=== PATIENT | male | born 1975 | race Asian ===

== ENCOUNTER 2019-10-03 03:15 | Inpatient (IN) | payer MEDICAID, OTHER ==
[2019-10-03] VITALS (18 sets, daily range): BP systolic 94–149; BP diastolic 65–106
[~2019-10-03] VITALS: Ht 162.6 cm; Wt 65.5 kg
[2019-10-03] MEDS ORDERED: methylPREDNISolone SOD SUCC 125 MG/2 ML VL ONE (03:20)
[2019-10-03] MEDS ORDERED: methylPREDNISolone SOD SUCC 125 MG/2 ML VL IV ONE (03:30)
[2019-10-03] MEDS ORDERED: LORazepam 2MG/ML-1ML VIAL ONE ×2 (03:37→04:05)
[2019-10-03 03:39] LABS: Basophils # (auto) 0.1 uL; Basophils % (auto) 0.4 % (0.0-2.0); Eosinophils # (auto) 0 uL
[2019-10-03 03:40] LABS: Hematocrit 36.7 % (41.0-53.0); Hemoglobin 11.3 g/dL (13.5-17.5); Lymphocytes # (auto) 3.4 uL; Lymphocytes % (auto) 14.5 % (10.0-50.0); Mean Corpuscular Hemoglobin 18.3 pg (28.0-32.0); Mean Corpuscular Hgb Conc. 30.7 g/dL (32.0-36.0); Mean Corpuscular Volume 59.5 fL (80.0-100.0); Monocytes % (auto) 8.4 % (0.0-12.0); Neutrophils # (auto) 18.1 uL; Neutrophils % (auto) 76.7 % (37.0-80.0); Platelet Count (auto) 711 10^3/uL (140-450); Red Blood Cells 6.17 10^6/uL (4.5-5.90); Red Cell Distribution Width 15.8 % (11.8-14.3); White Blood Cell 23.5 10^3/uL (4.4-10.8)
[2019-10-03] MEDS ORDERED: LORazepam 2MG/ML-1ML VIAL IV ONE ×2 (03:45→04:00)
[2019-10-03 03:51] LABS: Albumin 2.8 g/dL (3.4-5.0); Anion Gap 10 (5-15); Aspartate Aminotransferase 27 U/L (15-37); BUN/Creatinine Ratio 15.1; Blood Urea Nitrogen 13 mg/dL (7-18); Carbon Dioxide 24 mmol/L (21-32); Chloride 108 mmol/L (98-107); GFR African American 125 mL/min; GFR Non-African American 104 mL/min; Glucose 151 mg/dL (74-106); Potassium 3.6 mmol/L (3.5-5.1); Sodium 142 mmol/L (136-145)
[2019-10-03 03:55] LABS: Alanine Aminotransferase 44 U/L (16-61); Alkaline Phosphatase 171 U/L (45-117); Bilirubin, Total 0.3 mg/dL (0.2-1.0); Total Protein 7.7 g/dL (6.4-8.2)
[2019-10-03] MEDS ORDERED: ONDANSETRON HCL 4 MG/2 ML VIAL ONE (03:57)
[2019-10-03] MEDS ORDERED: ONDANSETRON HCL 4 MG/2 ML VIAL IV ONE (04:00)
[2019-10-03] MEDS ORDERED: IPRATROPIUM BROM 0.5 MG/2.5ML INH SOL ONE (04:07)
[2019-10-03] MEDS ORDERED: ALBUTEROL SULF 2.5 MG/0.5ML(0.5%) NEB SOLN ONE (04:07)
[2019-10-03] MEDS ORDERED: IOHEXOL 300 MG/ML 100ML BOTTLE IJ ONE ×2 (04:34→16:33)
[2019-10-03 05:03] LABS: INR 1.05 (0.9-1.15); Partial Thromboplastin Time 30.7 sec (23.64-32.05)
[2019-10-03 06:09] LABS: Urine Bacteria FEW /hpf (None Seen); Urine Blood Negative /uL (Negative); Urine Mucus FEW (None Seen); Urine Specific Gravity 1.021 (1.001-1.035); Urine WBC 2 /hpf (0 - 3)
[2019-10-03] MEDS ORDERED: DOCUSATE SOD 100 MG CAP PO PRN (07:15)
[2019-10-03] MEDS ORDERED: NITROGLYCERIN 0.4 MG SL TAB SL PRN (07:15)
[2019-10-03] MEDS ORDERED: MORPHINE SULF INJ 2 MG/ML SYRINGE 1ML IV PRN (07:15)
[2019-10-03] MEDS ORDERED: ONDANSETRON HCL 4 MG/2 ML VIAL IV PRN (07:15)
[2019-10-03] MEDS ORDERED: ACETAMINOPHEN 325 MG TAB PO PRN (07:15)
[2019-10-03] MEDS ORDERED: MORPHINE SULFATE 4 MG/ML SYR/VIAL IV PRN (07:15)
[2019-10-03] MEDS ORDERED: HYDROcodone-ACET 5/325MG TAB PO PRN (07:15)
[2019-10-03] MEDS ORDERED: MIDAZOLAM DRIP 50 mg/50mL 50 ML IV ONE (07:21)
[2019-10-03] MEDS ORDERED: VANCOMYCIN 1GM/250ML 250 ML IV SCH ×2 (07:45→08:45)
[2019-10-03] MEDS ORDERED: ETOMIDATE (2MG/ML) 20ML VIAL IV ONE (07:45)
[2019-10-03] MEDS ORDERED: SUCCINYLCHOLINE CHLORIDE 20 MG/ML 10ML VIAL IV ONE (07:45)
[2019-10-03] MEDS ORDERED: DEXTROSE (50%) 50ML SYRG IV PRN (07:45)
[2019-10-03] MEDS ORDERED: VANCOMYCIN PER PHARMACY 0 MG IV SCH (07:45)
[2019-10-03] MEDS ORDERED: PROPOFOL 100 ML IV ONE (07:49)
[2019-10-03] MEDS: InsuLIN REG 1unit/0.01ml Soln (100units/ml) SC SCH ×4 (08:00→20:00)
[2019-10-03] MEDS: MIDAZOLAM DRIP 50 mg/50mL 50 ML IV SCH ×2 (08:04→23:00)
[2019-10-03] MEDS: ACCU-CHEK COMFORT CURVE STRIP VI SCH ×4 (08:13→20:00)
[2019-10-03] MEDS: PROPOFOL 100 ML IV SCH ×2 (08:13→23:22)
[2019-10-03] MEDS: PIPERACILLIN-TAZOB 3.375GM 100 ML IV SCH ×3 (09:20→22:00)
[2019-10-03] MEDS: VANCOMYCIN 1GM/250ML 250 ML IV SCH ×2 (10:27→21:00)
[2019-10-03 11:25] LABS: Eosinophils # (auto) 0 uL; Monocytes # (auto) 0.4 uL
[2019-10-03 11:27] LABS: Basophils # (auto) 0.1 uL; Basophils % (auto) 0.4 % (0.0-2.0); Hematocrit 32.4 % (41.0-53.0); Lymphocytes % (auto) 12.9 % (10.0-50.0); Mean Corpuscular Hemoglobin 18.2 pg (28.0-32.0); Mean Corpuscular Volume 58.8 fL (80.0-100.0); Monocytes % (auto) 2.5 % (0.0-12.0); Neutrophils % (auto) 84.2 % (37.0-80.0); Platelet Count (auto) 475 10^3/uL (140-450); Red Blood Cells 5.51 10^6/uL (4.5-5.90); Red Cell Distribution Width 15.8 % (11.8-14.3); White Blood Cell 15.4 10^3/uL (4.4-10.8)
[2019-10-03 11:38] LABS: Calcium 9.6 mg/dL (8.5-10.1); Potassium 3.4 mmol/L (3.5-5.1)
[2019-10-03 11:42] LABS: BUN/Creatinine Ratio 19.4
--- NOTE | 2019-10-03 17:05 | NUR ---
Pt is currently listed as having no current insurance. Pt states they are currently unemployed. Discussed with patient eligibility options for medical coverage based on their current situation. Pt referred to Stevo Pruitt, Medi-breanna Yacht Rigger to assist with process for medi-breanna insurance coverage. Advised pt that additional information regarding d/c planning would be provided prior to their discharge. Will Follow up with Stevo regarding the insurance status.5
[2019-10-03] MEDS: ALBUTEROL SULF 2.5 MG/0.5ML(0.5%) NEB SOLN NEB PRN (18:16)
[2019-10-03] MEDS: IPRATROPIUM BROM 0.5 MG/2.5ML INH SOL NEB PRN (18:16)
[2019-10-03] MEDS: POTASSIUM CHL 20MEQ/100ML 100 ML IV SCH ×2 (19:37→21:26)
--- NOTE | 2019-10-03 20:15 | NUR ---
RT Transport Note: Patient transported to ICU with RN KARINA. Patient transported to ICU on ventilator with previous ordered settings. Patient on groundwater monitoring technician with alarms set and audible, ambu-bag/mask connected to 02 tank. Patient in room with no adverse reaction noted. Transport completed without incident.
--- NOTE | 2019-10-03 20:30 | NUR ---
44 YRS OLD MALE PT ADMITED TO ICU FROM ER VIA VERO LOZA TO MONITOR AND VENTILATOR. SEDATED, VS STABLE. ASSESSED, MEDICAL ORDERS REVIEWED, CARE PLAN INITIATED.
[2019-10-03] MEDS: methylPREDNISolone SOD SUCC 125 MG/2 ML VL IV SCH (21:26)
[2019-10-04] VITALS (107 sets, daily range): BP systolic 91–119; BP diastolic 66–93
[2019-10-04] MEDS: InsuLIN REG 1unit/0.01ml Soln (100units/ml) SC SCH ×6 (00:30→19:47)
[2019-10-04] MEDS: ALBUTEROL SULF 2.5 MG/0.5ML(0.5%) NEB SOLN NEB PRN ×4 (02:30→22:12)
[2019-10-04] MEDS: IPRATROPIUM BROM 0.5 MG/2.5ML INH SOL NEB PRN ×4 (02:30→22:12)
[2019-10-04] MEDS: MIDAZOLAM DRIP 50 mg/50mL 50 ML IV SCH ×3 (03:35→22:22)
[2019-10-04] MEDS: ACCU-CHEK COMFORT CURVE STRIP VI SCH ×6 (04:00→19:45)
[2019-10-04 04:53] LABS: Basophils # (auto) 0 uL; Eosinophils # (auto) 0 uL; Mean Corpuscular Hemoglobin 18.5 pg (28.0-32.0)
[2019-10-04 04:58] LABS: Basophils % (auto) 0.2 % (0.0-2.0); Eosinophils % (auto) 0.1 % (0.0-7.0); Hematocrit 31.5 % (41.0-53.0); Lymphocytes # (auto) 1.6 uL; Lymphocytes % (auto) 11.7 % (10.0-50.0); Mean Corpuscular Hgb Conc. 31.7 g/dL (32.0-36.0); Mean Corpuscular Volume 58.3 fL (80.0-100.0); Monocytes # (auto) 0.4 uL; Monocytes % (auto) 2.9 % (0.0-12.0); Neutrophils # (auto) 11.3 uL; Neutrophils % (auto) 85.1 % (37.0-80.0); Platelet Count (auto) 453 10^3/uL (140-450); Red Blood Cells 5.41 10^6/uL (4.5-5.90); Red Cell Distribution Width 15.6 % (11.8-14.3); White Blood Cell 13.3 10^3/uL (4.4-10.8)
[2019-10-04 05:14] LABS: Potassium 3.8 mmol/L (3.5-5.1)
[2019-10-04 05:19] LABS: BUN/Creatinine Ratio 19.8; Calcium 9.7 mg/dL (8.5-10.1)
[2019-10-04] MEDS: PIPERACILLIN-TAZOB 3.375GM 100 ML IV SCH ×3 (05:42→19:45)
[2019-10-04] MEDS: methylPREDNISolone SOD SUCC 125 MG/2 ML VL IV SCH ×3 (05:42→22:22)
[2019-10-04] MEDS: PROPOFOL 100 ML IV SCH (08:02)
[2019-10-04] MEDS: VANCOMYCIN 1GM/250ML 250 ML IV SCH ×2 (08:03→21:05)
[2019-10-04] MEDS: ENOXAPARIN SOD 40 MG/0.4 ML SYRINGE SC SCH (09:41)
--- NOTE | 2019-10-04 10:08 | NUR ---
OPENING Report received from Tabitha POSEY. Care initiated and initial assessment complete. Patient is sedated and ventilated, lungs are wheezy and coarse.
[2019-10-04] MEDS ORDERED: Jevity 1.2 Cal/Fiber 1 Liter GT SCH ×2 (10:30→12:30)
--- NOTE | 2019-10-04 11:38 | NUR ---
BEDSIDE Dr. Chacon bedside. New orders received.
--- NOTE | 2019-10-04 12:52 | NUR ---
Faxed higher level of care order to [facility] transfer center.
--- NOTE | 2019-10-04 13:17 | NUR ---
I spoke with Stevo ([phone]) regarding the status of patient's medi-breanna. Per Stevo, the medi-breanna application is secure, to breezy paperwork tomorrow-Stevo is still working on verifying whether or not patient had applied for medi-breanna in [facility]. At this time-no medi-breanna number is available.
--- NOTE | 2019-10-04 13:30 | NUR ---
CHECKING CLERK BEDSIDE Completing paperwork for insurance.
--- NOTE | 2019-10-04 13:41 | NUR ---
I received a call from Cliff at [facility] center-provided him with additional clinical information as requested-he is going to have his MD contact Dr. Echevarria and will let me know if they are willing to accept this patient.
--- NOTE | 2019-10-04 13:54 | NUR ---
I called [facility] transfer center [phone] and spoke with Flakita regarding the request to transfer to higher level of care. Provided her with contact information for Dr. Echevarria-faxed requested clinical documentation to [phone].
[2019-10-05] VITALS (107 sets, daily range): BP systolic 93–123; BP diastolic 67–100
[2019-10-05] MEDS: ACCU-CHEK COMFORT CURVE STRIP VI SCH ×7 (00:08→23:54)
[2019-10-05] MEDS: InsuLIN REG 1unit/0.01ml Soln (100units/ml) SC SCH ×7 (00:09→23:54)
[2019-10-05] MEDS: MIDAZOLAM DRIP 50 mg/50mL 50 ML IV SCH ×5 (01:58→23:53)
[2019-10-05] MEDS: PIPERACILLIN-TAZOB 3.375GM 100 ML IV SCH ×4 (01:58→19:42)
[2019-10-05] MEDS: ALBUTEROL SULF 2.5 MG/0.5ML(0.5%) NEB SOLN NEB PRN ×5 (05:54→22:07)
[2019-10-05] MEDS: IPRATROPIUM BROM 0.5 MG/2.5ML INH SOL NEB PRN ×5 (05:54→22:07)
[2019-10-05] MEDS: methylPREDNISolone SOD SUCC 125 MG/2 ML VL IV SCH ×3 (06:06→22:28)
[2019-10-05] MEDS: VANCOMYCIN 1GM/250ML 250 ML IV SCH ×2 (07:16→17:38)
--- NOTE | 2019-10-05 07:40 | NUR ---
OPENING Report received from Bonita POSEY. Care initiated and initial assessment complete. Patient is ventilated and sedated. Patients lungs are wheezy and coarse.
[2019-10-05] MEDS: PROPOFOL 100 ML IV SCH ×2 (08:00→08:07)
--- NOTE | 2019-10-05 09:30 | NUR ---
BEDSIDE Dr. Chacon bedside.
--- NOTE | 2019-10-05 09:36 | NUR ---
FRIEND BEDSIDE Patients friend bedside. Senior Biostatistician/Group Leader used to let friend know that he is stable but requires a higher level of care.
--- NOTE | 2019-10-05 09:39 | NUR ---
I received a call from [facility] transfer center letting me know that there are no beds available at this time, they will re-check in 4 hours.
[2019-10-05 10:34] LABS: Basophils # (auto) 0 uL; Basophils % (auto) 0.2 % (0.0-2.0); Eosinophils # (auto) 0 uL; Hematocrit 33.8 % (41.0-53.0); Neutrophils # (auto) 10.2 uL; Nucleated Red Blood Cells % 0.1 %
[2019-10-05 10:36] LABS: Hemoglobin 10.6 g/dL (13.5-17.5); Lymphocytes # (auto) 1.7 uL; Lymphocytes % (auto) 13.7 % (10.0-50.0); Mean Corpuscular Hemoglobin 18.2 pg (28.0-32.0); Mean Corpuscular Hgb Conc. 31.4 g/dL (32.0-36.0); Mean Corpuscular Volume 58.1 fL (80.0-100.0); Monocytes # (auto) 0.6 uL; Monocytes % (auto) 4.5 % (0.0-12.0); Neutrophils % (auto) 81.6 % (37.0-80.0); Platelet Count (auto) 483 10^3/uL (140-450); Red Blood Cells 5.82 10^6/uL (4.5-5.90); Red Cell Distribution Width 15.4 % (11.8-14.3); White Blood Cell 12.4 10^3/uL (4.4-10.8)
--- NOTE | 2019-10-05 10:37 | NUR ---
POINT OF CONTACT Tommy (Brother in Law) [phone] Patient brother is at the bedside, his Tajik is minimal. Dr. Chacon spoke with the brother in law, Tommy, about patients status and plan of care over the phone at the bedside with the brother present.
--- NOTE | 2019-10-05 10:41 | NUR ---
SPOKE TO NAUTICAL INSTRUMENT MECHANIC Spoke to Valerie Lyle about receiving patients medical records from prior hospital. At this time the brother in law, Tommy, mentioned that the patient, Adryan, was hospitalized at [facility].
[2019-10-05] MEDS: ENOXAPARIN SOD 40 MG/0.4 ML SYRINGE SC SCH (10:44)
--- NOTE | 2019-10-05 10:50 | NUR ---
Family updated on pt status Family of JANEL PUCKETT HEBERT updated on patient's status and condition. All questions and concerns addressed. Tommy, who is at the bedside, verbalized understanding.
[2019-10-05 10:55] LABS: Calcium 9.6 mg/dL (8.5-10.1); Potassium 3.8 mmol/L (3.5-5.1)
[2019-10-05 11:01] LABS: Albumin 2.4 g/dL (3.4-5.0); BUN/Creatinine Ratio 24.5; Bilirubin, Total 0.5 mg/dL (0.2-1.0); Total Protein 6.4 g/dL (6.4-8.2)
--- NOTE | 2019-10-05 12:30 | NUR ---
BEDSIDE Dr. Toney bedside assessing patient. From MDs standpoint, patient does not qualify for EGD due to mass presence.
--- NOTE | 2019-10-05 12:51 | NUR ---
I called [facility] ([phone]) and left message for case management to request previous record for this patient.
--- NOTE | 2019-10-05 15:01 | NUR ---
Nutrition Assessment Notes Please refer to link for full assessment notes. Est energy needs: 1052-7444 kcals (25-30 kcal/kgBW) Est protein needs: 48-60 gms/day (0.8-1.0 gm/kgBW) Will continue to monitor and reassess prn. Addendum: 10/05/19 at [address] Amended: Links added.
--- NOTE | 2019-10-05 15:29 | NUR ---
I called Stevo ([phone]) to request an update on patient's medi-breanna status. He stated he is still waiting to find out about patient's medi-breanna status in [facility] and that MD here to sign paperwork tomorrow for patient to have presumptive medi-breanna. There is not a medi-breanna number available at this time.
--- NOTE | 2019-10-05 17:00 | NUR ---
FULL LINEN CHANGE
[2019-10-05] MEDS: PANTOPRAZOLE 40 MG/10 ML VIAL INJ IV SCH (22:28)
--- NOTE | 2019-10-05 23:30 | NUR ---
I received a call from [facility] transfer center letting me know that there are no beds available at this time, they will re-check in 4 hours.
[2019-10-06] VITALS (107 sets, daily range): BP systolic 85–135; BP diastolic 57–98
[2019-10-06] MEDS: IPRATROPIUM BROM 0.5 MG/2.5ML INH SOL NEB PRN ×6 (02:29→22:05)
[2019-10-06] MEDS: ALBUTEROL SULF 2.5 MG/0.5ML(0.5%) NEB SOLN NEB PRN ×6 (02:29→22:05)
[2019-10-06] MEDS: PIPERACILLIN-TAZOB 3.375GM 100 ML IV SCH ×4 (02:45→19:34)
[2019-10-06] MEDS: VANCOMYCIN 1GM/250ML 250 ML IV SCH (02:45)
--- NOTE | 2019-10-06 02:58 | NUR ---
I received a call from [facility] transfer center letting me know that they want to talk to residential case manager so they will call back in day time.
[2019-10-06] MEDS: MIDAZOLAM DRIP 50 mg/50mL 50 ML IV SCH ×3 (03:55→20:33)
[2019-10-06] MEDS: ACCU-CHEK COMFORT CURVE STRIP VI SCH ×6 (03:56→23:40)
[2019-10-06] MEDS: InsuLIN REG 1unit/0.01ml Soln (100units/ml) SC SCH ×6 (03:57→23:40)
[2019-10-06 04:26] LABS: Basophils # (auto) 0 uL; Basophils % (auto) 0.2 % (0.0-2.0); Eosinophils # (auto) 0 uL; Hematocrit 35.7 % (41.0-53.0); Hemoglobin 11.2 g/dL (13.5-17.5); Lymphocytes # (auto) 1.3 uL; Lymphocytes % (auto) 12.1 % (10.0-50.0); Mean Corpuscular Hemoglobin 18.6 pg (28.0-32.0); Mean Corpuscular Hgb Conc. 31.5 g/dL (32.0-36.0); Monocytes # (auto) 0.4 uL; Monocytes % (auto) 3.8 % (0.0-12.0); Neutrophils # (auto) 9.3 uL; Neutrophils % (auto) 83.9 % (37.0-80.0); Platelet Count (auto) 460 10^3/uL (140-450); Red Blood Cells 6.05 10^6/uL (4.5-5.90); Red Cell Distribution Width 15.8 % (11.8-14.3); White Blood Cell 11.1 10^3/uL (4.4-10.8)
[2019-10-06 04:45] LABS: Potassium 3.2 mmol/L (3.5-5.1)
[2019-10-06 05:06] LABS: Albumin 2.2 g/dL (3.4-5.0); BUN/Creatinine Ratio 20.4; Bilirubin, Total 0.8 mg/dL (0.2-1.0); Total Protein 6.2 g/dL (6.4-8.2)
[2019-10-06] MEDS: methylPREDNISolone SOD SUCC 125 MG/2 ML VL IV SCH (06:08)
[2019-10-06] MEDS: PROPOFOL 100 ML IV SCH ×2 (06:08→22:38)
--- NOTE | 2019-10-06 08:15 | NUR ---
SPOKE WITH DR BACK REGARDING LOW POTASSIUM NEW ORDERS RECEIVED AND IMPLEMENTED
[2019-10-06] MEDS: POTASSIUM CHL 20MEQ/100ML 100 ML IV SCH ×2 (08:54→10:56)
--- NOTE | 2019-10-06 09:54 | NUR ---
PATIENTS BROTHER AT BEDSIDE UPDATED ON PATIENTS STATUS AND PLAN OF CARE
--- NOTE | 2019-10-06 10:30 | NUR ---
I called [facility] Transfer Center [phone] and spoke with Jerad, he said they have no ICU beds available at this time. I called [facility] Transfer Center and spoke with Portia to let her know that we can not sign the transfer back agreement at this time.
[2019-10-06] MEDS: PANTOPRAZOLE 40 MG/10 ML VIAL INJ IV SCH ×2 (10:56→21:22)
--- NOTE | 2019-10-06 12:22 | NUR ---
WOUND CARE NOTE: Wound care in to see patient due to low Eric score of 13 and intubation status putting patient to high risk for skin breakdown. Patient is 44 years old male with admitting diagnosis of Acute on chronic COPD Exacerbation. Patient with history of COPD, Lung CA with confirmed lung mass. Patient is resting in ICU bed in Rm. 108. He's intubated, sedated and mechanically ventilated. Patient appears to be in no pain using Baird Pang Faces Pain Scale. Skin assessment done with the assistance of a student nurse. No open wound noted other than Rt arrieta old scar, no drainage/odor noted, left open to air. No pressure injury noted. Patient tolerated well, repositioned patient for comfort facing his Rt side, redistributed pressure points with pillows. Family at bedside. RECOMMENDATION: Nursing to continue with BID/PRN cleaning and application of Barrier cream to sacral, buttocks as preventative per MD order, Dietary consult for low Eric score, frequent turning and repositioning schedule as condition permits, redistribute pressure points with pillows, elevate heels on pillows, continue monitoring by wound care while patient is mechanically ventilated. Addendum: 10/06/19 at 1437 by Alecia Lujan RN Amended: Links added.
[2019-10-06] MEDS ORDERED: SOD CHL 0.9%/ KCL 20MEQ 1,000 ML IV ONE (13:00)
--- NOTE | 2019-10-06 13:59 | NUR ---
I received a call from Nereida at the [facility] transfer center letting me know that they have no beds available at this time.
--- NOTE | 2019-10-06 14:31 | NUR ---
I contacted the [facility] Transfer Center [phone] and spoke with Stephanie Fowler regarding the need to transfer this patient to higher level of care. Per Stephanie Fowler they are at capacity and are not accepting any transfers at this time. She said to try back tomorrow.
--- NOTE | 2019-10-06 14:42 | NUR ---
I called [facility] [phone] and spoke with Linda in Admitting to make her aware of the need to transfer this patient. She will present the information to her doctor and give me a call back to let me know if this is something they can handle.
--- NOTE | 2019-10-06 14:43 | NUR ---
Per Stevo, patient's MEDI-MARISA number is [id number].
--- NOTE | 2019-10-06 16:40 | NUR ---
I received a call from Linda in Admitting at [facility], she said they can accept this patient but they have no ICU beds available today-she will follow back up with me tomorrow morning.
--- NOTE | 2019-10-06 20:00 | NUR ---
OPENING NOTE: INTUBATED AND SEDATED. GROSSLY UNRESPONSIVE. +COUGH/GAG. PUPILS 4+ AND BRISK. NSR, HR 80-90s. SBP 90-100s. 8.0 ETT, 27 AT THE LIP. EVEN AND UNLABORED BREATHING. LS WITH INSPIRATORY AND EXPIRATORY WHEEZE. SpO2>95%. ABD SOFT. HYPOACTIVE BS. NGT TO RIGHT NARE, + AIR BOLUS. UNKNOWN LBM. MUNIZ PATENT AND INTACT DRAINING, LIGHT FINA YELLOW URINE. SKIN GROSSLY INTACT SEE WOUND AND SKIN FLOWSHEET FOR ASSESSMENT. 18 G PIV R AC, CDI, AND PATENT WITH BLOOD RETURN. 20 G PIV TO LEFT HAND, CDI, NO BLOOD RETURN FLUSHES WELL. LEFT HAND 20 G PIV, CDI, PATENT WITH BLOOD RETURN. ALL PIVs WITHOUT SIGNS OF INFILTRATION OR PHLEBITIS AT THIS TIME. NO FAMILY PRESENT AT THIS TIME. REINFORCED POC. MAINTAINED PATIENT SAFETY: BED LOCKED AND IN THE LOWEST POSITION, FREQUENT VISUAL CHECKS. WILL CONT CARE
--- NOTE | 2019-10-06 20:00 | NUR ---
RECTAL TEMP 97.4F - WARMING LAMP REMAINS ON, MADE AMBIENT TEMPERATURE WARMER, AND COVERED PATIENT WITH ANOTHER BLANKET.
--- NOTE | 2019-10-06 21:00 | NUR ---
ROTATED INFUSING IV MEDICATIONS IN PERIPHERAL IVs: R AC 18 G PIV ORIGINALLY INFUSING DIPRIVAN GTT AND VERSED GTT, NOW INFUSING MAINTENANCE IV FLUID R HAND 20 G PIV ORIGINALLY INFUSING MAINTENANCE IV FLUID, NOW INFUSING TKO FOR ANTIBIOTICS LEFT HAND 20 G PIV ORIGINALLY INFUSING TKO FOR ANTIBIOTICS, NOW INFUSING DIPRIVAN AND VERSED GTT WILL CONTINUE TO MONITOR FOR PATENCY, SIGNS OF INFILTRATION AND PHLEBITIS
--- NOTE | 2019-10-06 21:02 | NUR ---
UNABLE TO COMPLETE SEDATION VACATION AT THIS TIME: TOO CRITICAL AND SENSITIVE TO WEAN SEDATION AT THIS TIME Addendum: 10/06/19 at 2104 by Jenniffer Gonzalez RN RN Amended: Links added.
[2019-10-06] MEDS: methylPREDNISolone SOD SUCC 40 MG/ML VL IV SCH (21:22)
[2019-10-07] VITALS (94 sets, daily range): BP systolic 91–126; BP diastolic 58–85
--- NOTE | 2019-10-07 | NUR ---
RECTAL TEMP NOW 98.8F: TURNED OFF WARMING LAMP.
--- NOTE | 2019-10-07 00:30 | NUR ---
PLEURAL RUB NOTED TO LEFT LOWER LOBE WITH INSPIRATORY AND EXPIRATORY WHEEZE: EVEN AND UNLABORED BREATHING. SpO2>95%.
[2019-10-07] MEDS: PIPERACILLIN-TAZOB 3.375GM 100 ML IV SCH ×4 (02:01→20:01)
[2019-10-07] MEDS: ALBUTEROL SULF 2.5 MG/0.5ML(0.5%) NEB SOLN NEB PRN ×6 (02:07→22:20)
[2019-10-07] MEDS: IPRATROPIUM BROM 0.5 MG/2.5ML INH SOL NEB PRN ×6 (02:07→22:20)
--- NOTE | 2019-10-07 02:45 | NUR ---
BED BATH WITH CHG WIPES, MARIUSZ CARE, MUNIZ CARE, ORAL CARE, AND PARTIAL LINEN CHANGE COMPLETED
--- NOTE | 2019-10-07 03:30 | NUR ---
D/C'D PIV TO RIGHT AC, LEFT HAND, AND RIGHT HAND - TIP INTACT, AND HEMOSTASIS ACHIEVED.
--- NOTE | 2019-10-07 03:40 | NUR ---
PIVs RESTARTED: 20 G TO RIGHT WRIST. 20 G TO LEFT WRIST, AND 18 G TO LEFT UPPER ARM. ALL CDI, AND PATENT WITH BLOOD RETURN
[2019-10-07] MEDS: InsuLIN REG 1unit/0.01ml Soln (100units/ml) SC SCH ×5 (04:00→21:49)
[2019-10-07] MEDS: ACCU-CHEK COMFORT CURVE STRIP VI SCH ×5 (04:13→21:49)
[2019-10-07 04:14] LABS: Basophils # (auto) 0 uL; Basophils % (auto) 0.1 % (0.0-2.0); Eosinophils # (auto) 0 uL; Hematocrit 32.3 % (41.0-53.0); Hemoglobin 10.1 g/dL (13.5-17.5); Lymphocytes # (auto) 0.9 uL; Lymphocytes % (auto) 6.9 % (10.0-50.0); Mean Corpuscular Hemoglobin 18.3 pg (28.0-32.0); Mean Corpuscular Hgb Conc. 31.2 g/dL (32.0-36.0); Mean Corpuscular Volume 58.8 fL (80.0-100.0); Monocytes # (auto) 0.6 uL; Monocytes % (auto) 4.8 % (0.0-12.0); Neutrophils # (auto) 11.3 uL; Neutrophils % (auto) 88.2 % (37.0-80.0); Nucleated Red Blood Cells % 0.1 %; Platelet Count (auto) 395 10^3/uL (140-450); Red Blood Cells 5.49 10^6/uL (4.5-5.90); Red Cell Distribution Width 15.5 % (11.8-14.3); White Blood Cell 12.7 10^3/uL (4.4-10.8)
[2019-10-07 04:36] LABS: Potassium 4.3 mmol/L (3.5-5.1)
--- NOTE | 2019-10-07 04:36 | NUR ---
NS WITH KCL INFUSED - ORDER WAS WRITTEN ONE TIME ORDER; HUNG NS AT SAME RATE, WILL ENDORSE TO DAY SHIFT TO CLARIFY ORDER
[2019-10-07 04:45] LABS: Albumin 2.3 g/dL (3.4-5.0); BUN/Creatinine Ratio 25.5; Bilirubin, Total 0.6 mg/dL (0.2-1.0); Calcium 8.8 mg/dL (8.5-10.1); Total Protein 5.8 g/dL (6.4-8.2)
[2019-10-07] MEDS: MIDAZOLAM DRIP 50 mg/50mL 50 ML IV SCH ×5 (05:33→20:57)
--- NOTE | 2019-10-07 06:11 | NUR ---
PRN HHN TX ADMINISTERED WITH AEROGEN NEB AT THIS TIME.
--- NOTE | 2019-10-07 06:30 | NUR ---
CLOSING NOTE: REMAINS INTUBATED AND SEDATED. EVEN AND UNLABORED BREATHING. INSPIRATORY AND EXPIRATORY WHEEZE. PLEURAL RUB SOUND NOT PREDOMINANT BEFORE. VSS. WILL ENDORSE CARE TO DAY SHIFT.
--- NOTE | 2019-10-07 07:08 | NUR ---
REPORT AND CARE ENDORSED TO YENNY POSEY
--- NOTE | 2019-10-07 07:08 | NUR ---
REPORT RECEIVED FROM WASTE EXAMINER RN PATIENT ON MECHANICAL VENTILATOR, SEDATED WITH VERSED AND PROPOFOL, NO VASOPRESSORS AT THIS TIME. NGT TO LIS, SCD'S BILATERALLY, SKIN INTEGRITY SEE INTERVENTION
--- NOTE | 2019-10-07 08:41 | NUR ---
I called [facility] Transfer Center [phone] and spoke with Ly, no beds available at this time. I also called [facility] and left message for Linda in admitting [phone].
[2019-10-07] MEDS: PANTOPRAZOLE 40 MG/10 ML VIAL INJ IV SCH ×2 (09:32→21:48)
[2019-10-07] MEDS: methylPREDNISolone SOD SUCC 40 MG/ML VL IV SCH ×2 (09:32→21:48)
[2019-10-07 09:35] LABS: INR 1.05 (0.9-1.15); Partial Thromboplastin Time 29.8 sec (23.64-32.05)
--- NOTE | 2019-10-07 09:50 | NUR ---
I called [facility] and spoke with Linda in Admitting [phone]-she said her MD would like to speak with Dr. Echevarria to make sure that they are able to provide the care this patient needs. Provided Dr. Echevarria with MD information Dr. Ventura [phone].
--- NOTE | 2019-10-07 09:59 | NUR ---
PRN MED NEB ADMINISTERED WITH AEROGEN NEBULIZER.
--- NOTE | 2019-10-07 10:06 | NUR ---
I re-faxed transfer order/clinical information to [facility] with updated face sheet showing patient has MEDI-MARISA.
--- NOTE | 2019-10-07 10:07 | NUR ---
FAMILY BROTHER AT BEDSIDE. UPDATED ON STATUS AND PLAN OF CARE WITH TRANSLATION FROM ERNIE FLOYD. ALL QUESTIONS AND CONCERNS ADDRESSED AT THIS TIME
--- NOTE | 2019-10-07 11:00 | NUR ---
A, CXR REVIEWED, ETT ADVANCED TO 28 CM AT THE LIP. EQUAL BILAT CHEST RISE AND FALL NOTED. EQUAL BREATH SOUNDS NOTED.
--- NOTE | 2019-10-07 11:00 | NUR ---
ET TUBE ADVANCED BY RT 28 AT THE LIP
--- NOTE | 2019-10-07 11:13 | NUR ---
I spoke with Cliff at [facility] [phone], he said they received updated face sheet and clinical information and are re-opening this case-he will work on doing an MD to MD and he will call me later with an update.
--- NOTE | 2019-10-07 12:07 | NUR ---
I received a call from Portia at the [facility] transfer center, she said they can not accept this patient for transfer because they would have to have a general medicine doctor to admit-they are at capacity.
--- NOTE | 2019-10-07 12:45 | NUR ---
BIOPSY MASS CONSENT OBTAINED FROM ERNIE DANGELO AND CONFIRMED WITH SECOND NURSE OVER TELEPHONE.
--- NOTE | 2019-10-07 13:18 | NUR ---
I called [facility] Transfer Center [phone] and spoke with Flakita regarding the need to transfer this patient to higher level of care. I provided her with contact information for Dr. Echevarria as well as the nurse's station. Faxed her requested clinical information/transfer order to [phone]. I spoke with Dr. Echevarria-she let me know that she spoke with MD at [facility] and they are unable to provided the care that this patient requires.
--- NOTE | 2019-10-07 14:21 | NUR ---
ULTRASOUND AT BEDSIDE
[2019-10-07] MEDS ORDERED: D5W/SOD CHLO 0.9% 1,000 ML IV SCH ×2 (14:30→14:45)
[2019-10-07] MEDS: D5W/SOD CHLO 0.9% 1,000 ML IV SCH (14:56)
--- NOTE | 2019-10-07 15:11 | NUR ---
RADIOLOGIST AT BEDSIDE FOR BIOPSYS
--- NOTE | 2019-10-07 15:17 | NUR ---
I called [facility] (spoke with Flynn [phone]) and placed them on will call pending transfer to higher level of care. I spoke with nurse Ted and made him aware-I also let Ted know that since patient is MEDI-MARISA that when we have an accepting facility the MEDI-MARISA PCS form has to be faxed to [facility] (it can't be faxed now because there is no accepting facility)I faxed a pre-filled out MEDI-MARISA PCS form to Ted in ICU letting him know that just the date of transfer and the accepting facility need to be added to form before faxing it to [facility] (fax to [phone]).
--- NOTE | 2019-10-07 16:12 | NUR ---
LYMPH NODE BIOPSY TAKEN TO LAB VIA PRIMARY RN
[2019-10-07 16:14] LABS: % Iron Saturation 28.2 % (20-55)
[2019-10-07] MEDS: PROPOFOL 100 ML IV SCH (16:45)
[2019-10-07] MEDS ORDERED: FREE WATER GT SCH (18:00)
[2019-10-07] MEDS ORDERED: LIDOCAINE 1% (LOCAL ANESTH.) PF 5ml SDV ID ONE (18:15)
--- NOTE | 2019-10-07 18:18 | NUR ---
XRAY AT BEDSIDE S/P PICC INSERTION
--- NOTE | 2019-10-07 18:18 | NUR ---
PICC line placement Patient/Patient significant other educated on need for PICC line placement. All risks and benefits explained and all questions and concerns addressed prior to procedure. Noted past medical history and allergies with no contraindications. INR and Plt counts within acceptable range. 5fr PICC line inserted via right brachial vein using [employer]s [employer] US and Tip Location System. Sterile technique with maximum barrier precautions utilized. Blood return obtained from each of 3 lumens and each flushed easily with NS using proper technique. PICC secured with Stat-lock; biodisc and occlusive dressing applied. Stat portable chest x-ray obtained for PICC tip placement. *Baseline Arm Circumference 26cm. PICC lot #[id number]. intrernal length 39cm external length 0cm
--- NOTE | 2019-10-07 20:00 | NUR ---
OPENING NOTE: INTUBATED AND SEDATED. GROSSLY UNRESPONSIVE. HYPERACTIVE COUGH/GAG. PUPILS 4+ AND BRISK. NSR, HR 80-90s. SBP 90-100s. 8.0 ETT, 28 AT THE LIP. EVEN AND UNLABORED BREATHING. LS WITH INSPIRATORY AND EXPIRATORY WHEEZE. SpO2>95%. ABD SOFT. HYPOACTIVE BS. NGT TO RIGHT NARE, + AIR BOLUS. UNKNOWN LBM. MUNIZ PATENT AND INTACT DRAINING, LIGHT FINA YELLOW URINE. SKIN GROSSLY INTACT SEE WOUND AND SKIN FLOWSHEET FOR ASSESSMENT. 18 G PIV KHALIDA CDI, AND PATENT WITH BLOOD RETURN. 20 G PIV TO LEFT WRIST, CDI, PATENT WITH BLOOD RETURN. RIGHT WRIST 20 G PIV, CDI, PATENT WITH BLOOD RETURN. ALL PIVs WITHOUT SIGNS OF INFILTRATION OR PHLEBITIS AT THIS TIME. RIGHT UPPER ARM PICC LINE, CDI, AND PATENT WITH BLOOD RETURN NO FAMILY PRESENT AT THIS TIME. REINFORCED POC. MAINTAINED PATIENT SAFETY: BED LOCKED AND IN THE LOWEST POSITION, FREQUENT VISUAL CHECKS. WILL CONT CA
[2019-10-07] MEDS: SODIUM CHLOR 0.9% PF (SALINE LOCK) 10ML VIAL/SYR IV SCH (21:49)
--- NOTE | 2019-10-07 23:22 | NUR ---
UNABLE TO COMPLETE SEDATION VACATION AT THIS: PATIENT TOO UNSTABLE. WILL REASSESS NECESSITY OF SEDATION LEVEL. Addendum: 10/07/19 at 7857 by Jenniffer Gonzalez RN RN Amended: Links added.
[2019-10-08] VITALS (100 sets, daily range): BP systolic 88–127; BP diastolic 60–93
--- NOTE | 2019-10-08 00:15 | NUR ---
PICC LINE OOZING BLOOD - CHANGED AND APPLIED SURGICELL
[2019-10-08] MEDS: MIDAZOLAM DRIP 50 mg/50mL 50 ML IV SCH ×3 (01:55→22:13)
[2019-10-08] MEDS: PIPERACILLIN-TAZOB 3.375GM 100 ML IV SCH ×4 (01:57→19:26)
[2019-10-08] MEDS: ALBUTEROL SULF 2.5 MG/0.5ML(0.5%) NEB SOLN NEB PRN ×6 (02:17→21:56)
[2019-10-08] MEDS: IPRATROPIUM BROM 0.5 MG/2.5ML INH SOL NEB PRN ×6 (02:17→21:56)
[2019-10-08] MEDS: PROPOFOL 100 ML IV SCH ×3 (03:08→21:27)
[2019-10-08 04:34] LABS: Basophils # (auto) 0 uL; Eosinophils # (auto) 0 uL; Hematocrit 31.1 % (41.0-53.0); Mean Corpuscular Volume 59.8 fL (80.0-100.0); Monocytes # (auto) 0.6 uL
[2019-10-08 04:37] LABS: Basophils % (auto) 0.4 % (0.0-2.0); Hemoglobin 9.6 g/dL (13.5-17.5); Lymphocytes # (auto) 0.8 uL; Lymphocytes % (auto) 6.7 % (10.0-50.0); Mean Corpuscular Hemoglobin 18.4 pg (28.0-32.0); Mean Corpuscular Hgb Conc. 30.8 g/dL (32.0-36.0); Monocytes % (auto) 5.3 % (0.0-12.0); Neutrophils # (auto) 10.5 uL; Neutrophils % (auto) 87.6 % (37.0-80.0); Nucleated Red Blood Cells % 0.5 %; Platelet Count (auto) 322 10^3/uL (140-450); Red Cell Distribution Width 15.5 % (11.8-14.3)
[2019-10-08 04:54] LABS: Calcium 8.4 mg/dL (8.5-10.1)
[2019-10-08 04:57] LABS: BUN/Creatinine Ratio 28.6
[2019-10-08] MEDS: ACCU-CHEK COMFORT CURVE STRIP VI SCH ×5 (07:18→23:53)
[2019-10-08] MEDS: InsuLIN REG 1unit/0.01ml Soln (100units/ml) SC SCH ×5 (07:18→23:53)
--- NOTE | 2019-10-08 07:32 | NUR ---
REPORT AND CARE ENDORSED TO TATY MATOS
--- NOTE | 2019-10-08 08:36 | NUR ---
HIGH PEAK PRESSURES: Ventilator continuously alarming high pressure, PIP's reading consistently 40-50. Dr. Mckeon in unit, informed him of elevated pressures; states to obtain CXR.
--- NOTE | 2019-10-08 08:54 | NUR ---
FAMILY; Patient's brother at bedside, understands small amounts of simple [place] Citizen. Brother called his [id number] Tommy on cell phone to assist with translation. Explained at this time patient's breathing does appear labored, informed family that sedation medication is being increased to attempt to help, also explained that a chest X-ray was ordered by the doctor and that the liquor stores and agencies supervisor is in the unit. Family inquired if patient's condition has improved, informed them that his condition remains largely unchanged but if unable to control the respiratory effort it may indicate a worsening in condition. Also explained that the plan continues to be to transfer to a higher level facility that has the services required by the patient. Family verbalized understanding.
--- NOTE | 2019-10-08 09:00 | NUR ---
SEDATION VACATION; Sedation vacation not performed as patient is requiring increasing dosage of sedation. Ventilator is continuously alarming high pressure. Addendum: 10/08/19 at 0931 by Kirill Moreno RN Amended: Links added.
[2019-10-08] MEDS: PANTOPRAZOLE 40 MG/10 ML VIAL INJ IV SCH ×2 (09:53→21:34)
[2019-10-08] MEDS: methylPREDNISolone SOD SUCC 40 MG/ML VL IV SCH ×2 (09:54→21:34)
[2019-10-08] MEDS: D5W/SOD CHLO 0.9% 1,000 ML IV SCH (09:54)
--- NOTE | 2019-10-08 10:00 | NUR ---
REPOSITIONING Zay Roy RN in repositioning pt., pt. tolerated procedure well, no other problems noted.
[2019-10-08] MEDS: SODIUM CHLOR 0.9% PF (SALINE LOCK) 10ML VIAL/SYR IV SCH ×2 (10:07→21:34)
--- NOTE | 2019-10-08 10:19 | NUR ---
CALL FROM [facility]: Received call from Melanie POSEY from [facility] transfer center, states to proceed with transfer a transfer back agreement would need to be signed. ICU fax number provided. Transfer back agreement filled out and faxed back to Melanie.
[2019-10-08] MEDS ORDERED: TPN PER PHARMACY 0 ML IV SCH (11:45)
[2019-10-08 13:39] LABS: Phosphorus 3.4 mg/dL (2.5-4.90)
--- NOTE | 2019-10-08 14:00 | NUR ---
I called [facility] Transfer Center [phone] and spoke with Nancy, there are no beds available at this time.
--- NOTE | 2019-10-08 18:45 | NUR ---
Respiratory note: ADVANCED ETT TO 28CM LIPLINE FROM 25CM. POST XRAY TAKEN. RN SHAWNA AWARE OF ADVANCEMENT
--- NOTE | 2019-10-08 19:30 | NUR ---
TEMP 97.5F RECTALLY, 98.1F ORALLY AND 97.6F AXILLARY - WARMING MEASURES APPLIED: PLACED WARM BLANKET ON PATIENT, MADE AMBIENT ROOM TEMPERATURE WARMER, PLACED WARMING LAMP OVERHEAD. WILL CONT CARE
--- NOTE | 2019-10-08 19:30 | NUR ---
OPENING NOTE: INTUBATED AND SEDATED. GROSSLY UNRESPONSIVE. HYPERACTIVE COUGH/GAG. PUPILS 4+ AND BRISK. NSR, HR 80-90s. SBP 90-100s. 8.0 ETT, 28 AT THE LIP. EVEN AND UNLABORED BREATHING. LS WITH EXPIRATORY WHEEZE. SpO2>95%. ABD SOFT. HYPOACTIVE BS. NGT TO RIGHT NARE, + AIR BOLUS. UNKNOWN LBM. MUNIZ PATENT AND INTACT DRAINING, LIGHT FINA YELLOW URINE. SKIN GROSSLY INTACT SEE WOUND AND SKIN FLOWSHEET FOR ASSESSMENT. 18 G PIV KHALIDA CDI, AND PATENT WITH BLOOD RETURN. 20 G PIV TO LEFT WRIST, CDI, PATENT WITH BLOOD RETURN. RIGHT WRIST 20 G PIV, CDI, PATENT WITH BLOOD RETURN. ALL PIVs WITHOUT SIGNS OF INFILTRATION OR PHLEBITIS AT THIS TIME. RIGHT UPPER ARM PICC LINE, CDI, AND PATENT WITH BLOOD RETURN NO FAMILY PRESENT AT THIS TIME. REINFORCED POC. MAINTAINED PATIENT SAFETY: BED LOCKED AND IN THE LOWEST POSITION, FREQUENT VISUAL CHECKS. WILL CONT CARE
[2019-10-08] MEDS ORDERED: TPN PER PHARMACY IV NR ×5 (20:00)
--- NOTE | 2019-10-08 21:00 | NUR ---
UNABLE TO COMPLETE SEDATION VACATION AT THIS TIME: TOO UNSTABLE. WILL REASSESS NECESSITY OF SEDATION Addendum: 10/08/19 at 2233 by Jenniffer Gonzalez RN RN Amended: Links added.
--- NOTE | 2019-10-08 21:22 | NUR ---
TEMP UNCHANGED - WILL PLACE ON [place]
--- NOTE | 2019-10-08 21:47 | NUR ---
UNABLE TO LOCATE INDIA HUGGER - PLACED WARM PACKS UNDER AXILLA
--- NOTE | 2019-10-08 21:47 | NUR ---
NOTED WITH DUPLICATE INSULIN ORDERS - WILL GIVE SCHEDULED INSULIN DUE AT 2200 DUE TO INCREASED BG AND NO INSULIN GIVEN AT 1800, WILL RECHECK AT 0000
--- NOTE | 2019-10-08 21:48 | NUR ---
DECREASED MAINTENANCE IVF DOWN TO 30 ML/HR DUE TO TPN INFUSING - WILL ENDORSE TO DAY SHIFT TO CLARIFY WITH MD IN AM
[2019-10-09] VITALS (89 sets, daily range): BP systolic 84–131; BP diastolic 55–94
[2019-10-09] MEDS ORDERED: DEXTROSE (50%) 50ML SYRG IV SCH
--- NOTE | 2019-10-09 00:23 | NUR ---
PATIENT DOES NOT TOLERATE REPOSITION TO RIGHT, BP DECREASES
[2019-10-09] MEDS: ALBUTEROL SULF 2.5 MG/0.5ML(0.5%) NEB SOLN NEB PRN ×5 (01:53→18:20)
[2019-10-09] MEDS: IPRATROPIUM BROM 0.5 MG/2.5ML INH SOL NEB PRN ×5 (01:53→18:20)
[2019-10-09] MEDS: PIPERACILLIN-TAZOB 3.375GM 100 ML IV SCH ×3 (01:55→14:30)
[2019-10-09] MEDS: MIDAZOLAM DRIP 50 mg/50mL 50 ML IV SCH ×4 (01:55→19:45)
--- NOTE | 2019-10-09 02:45 | NUR ---
PATIENT VOIDING AROUND MUNIZ CATHETER - CATHETER REMOVED AND REPLACED WITH 16 FR MUNIZ VIA STERILE TECHNIQUE
--- NOTE | 2019-10-09 03:00 | NUR ---
PICC LINE DRESSING CHANGED: PREVIOUS DRESSING SATURATED AND APPEARED MURKY AND BROWN. CHANGED VIA STERILE TECHNIQUE
--- NOTE | 2019-10-09 03:16 | NUR ---
BED BATH WITH CHG WIPES, MARIUSZ CARE, MUNIZ CARE, ORAL CARE, AND PARTIAL LINEN CHANGE COMPLETED
[2019-10-09] MEDS: PROPOFOL 100 ML IV SCH (03:48)
[2019-10-09 04:28] LABS: Hematocrit 30.1 % (41.0-53.0); Hemoglobin 9.4 g/dL (13.5-17.5)
[2019-10-09 04:50] LABS: Albumin 2.2 g/dL (3.4-5.0); Calcium 8.2 mg/dL (8.5-10.1); Magnesium 2.5 mg/dL (1.6-2.6)
[2019-10-09 04:57] LABS: BUN/Creatinine Ratio 26.8; Bilirubin, Total 0.5 mg/dL (0.2-1.0); Phosphorus 2.3 mg/dL (2.5-4.90); Pre Albumin 40.6 mg/dL (20.0-40.0); Total Protein 5.7 g/dL (6.4-8.2)
[2019-10-09] MEDS: InsuLIN REG 1unit/0.01ml Soln (100units/ml) SC SCH ×3 (06:02→18:00)
[2019-10-09] MEDS: ACCU-CHEK COMFORT CURVE STRIP VI SCH ×3 (06:02→18:00)
[2019-10-09] MEDS: D5W/SOD CHLO 0.9% 1,000 ML IV SCH (06:45)
[2019-10-09] MEDS: methylPREDNISolone SOD SUCC 40 MG/ML VL IV SCH (09:44)
[2019-10-09] MEDS: PANTOPRAZOLE 40 MG/10 ML VIAL INJ IV SCH (09:44)
[2019-10-09] MEDS: SODIUM CHLOR 0.9% PF (SALINE LOCK) 10ML VIAL/SYR IV SCH (10:00)
[2019-10-09] MEDS ORDERED: SODIUM PHOSPHATES IV ONE (10:00)
[2019-10-09] MEDS ORDERED: SODIUM CHL 0.9% IV ONE (10:00)
--- NOTE | 2019-10-09 12:59 | NUR ---
I called the [facility] Transfer Center [phone] and spoke with Yuri, they have no beds available at this time. I called the [facility] Transfer Center and left a message asking about bed availability.
--- NOTE | 2019-10-09 15:35 | NUR ---
LUIS ALBERTO AT [facility] TRANSFER CENTER: Received phone call from Flakita POSEY from Luis Alberto at [facility] transfer center. She states that updated clinicals are needed. Updated progress noted, oncology consultation note, US guided biopsy report as well as revised transfer back agreement faxed to . Flakita states that as long as the physician is willing to accept patient will have a bed this evening. Requests that call be placed to [facility] to determine what their CCT transport availability is.
--- NOTE | 2019-10-09 16:00 | NUR ---
CALL TO [facility]: Call placed to [facility] to inquire about CCT transport. Tetryl Dissolver Operator states that the earliest team availability is currently midnight, but could potentially be later.
--- NOTE | 2019-10-09 16:30 | NUR ---
Respiratory note: VT DECREASED FROM [address] SOSA ORDER. ABG NOT NEEDED POST VT CHANGE PER DR SOSA. POSSIBLE TRANSFER TO [facility] PER RN SHAWNA. WILL ENDORSE PT STATUS TO AUTO BODY REPAIR ESTIMATOR.
--- NOTE | 2019-10-09 19:28 | NUR ---
FAMILY NOTIFICATION; Patient's nephew Liban notified of patient acceptance to [facility]. Informed him that patient will go by air and the team should be arriving within the next 5-10 minutes for pick-up. Unit and room number provided.
[2019-10-09] MEDS ORDERED: TPN PER PHARMACY IV NR ×8 (20:00)
--- NOTE | 2019-10-09 20:02 | NUR ---
REPORT; Report called to Atul POSEY at [phone].
--- NOTE | 2019-10-09 20:23 | NUR ---
PATIENT IS LOADED ONTO THE [facility] PERSONNEL'S GURNEY. TPN AND SEDATION ON THEIR TUBING AND PUMPS. PATIENT TAKEN OFF OUR VENTILATOR AND PLACED ON THEIR PORTABLE VENTILATOR AND MONITOR. NSR WITHOUT ECTOPY. RIGHT UPPER ARM PICC LINE PATENT. NGT TO LIS SUCTION. NGT SECRETIONS WERE A VERY DARK GREEN. MUNIZ EMPTIED AND PLACED ON OUR I&O. PATIENT IS LEAVING NOW.
[2019-10-10 09:47] LABS: Folate (Folic Acid) 2.92 ng/mL (5.38-24)
== END 2019-10-09 20:23 | disposition short-term general hospital (02) | DRG 651 ==
LOC: ER 03:15 → TELE 03:16 → ICU WEST 20:29
PROVIDERS: ADMIT Hospitalist; ATTEND Internal Medicine Nephrology
PROC: 5A1955Z Respiratory Ventilation, Greater than 96 Consecutive Hours (ICD-10-PCS; principal; 2019-10-03)
PROC: 0BH17EZ Insertion of Endotracheal Airway into Trachea, Via Natural or Artificial Opening (ICD-10-PCS; 2019-10-03)
PROC: 5A09357 Assistance with Respiratory Ventilation, Less than 24 Consecutive Hours, Continuous Positive Airway Pressure (ICD-10-PCS; 2019-10-03)
PROC: 07B23ZX Excision of Left Neck Lymphatic, Percutaneous Approach, Diagnostic (ICD-10-PCS; 2019-10-07)
PROC: 02HV33Z Insertion of Infusion Device into Superior Vena Cava, Percutaneous Approach (ICD-10-PCS; 2019-10-07)
DX: R59.0 Localized enlarged lymph nodes (principal); J96.01 Acute respiratory failure with hypoxia; Z99.11 Dependence on respirator [ventilator] status; J44.0 Chronic obstructive pulmonary disease with (acute) lower respiratory infection; C15.9 Malignant neoplasm of esophagus, unspecified; R65.10 Systemic inflammatory response syndrome (SIRS) of non-infectious origin without acute organ dysfunction; C33 Malignant neoplasm of trachea; J44.1 Chronic obstructive pulmonary disease with (acute) exacerbation; F17.210 Nicotine dependence, cigarettes, uncomplicated; J20.9 Acute bronchitis, unspecified; J98.11 Atelectasis; E87.6 Hypokalemia; F41.9 Anxiety disorder, unspecified; Z85.118 Personal history of other malignant neoplasm of bronchus and lung
CPT/HCPCS: 10022; 31500; 36415; 36569; 36600; 70491; 71045; 71260; 76881; 76942; 80048; 80053; 80061; 80202; 81001; 82040; 82607; 82728; 82746; 82805; 82962; 83540; 83550; 83605; 83735; 84100; 84478; 84484; 85014; 85018; 85025; 85379; 85610; 85730; 86850; 86900; 86901; 87040; 87070; 87081; 87086; 87205; 87804; 93005; 94002; 94003; 94640; 94644; 94660; 96365; 96375; 96376; 99291; C9113; G0378; J1815; J2250; J2405; J2543; J2704; J3480; J7042